=== PATIENT | female | born 1950 | race Caucasian/White ===

== ENCOUNTER 2018-11-17 09:42 | Outpatient (CLI) | payer MEDICARE, MEDICAID | END 2018-11-17 09:43 | disposition home or self-care (01) | LOC: C.LAB 09:42 | DX: R31.0 Gross hematuria (principal) ==

== ENCOUNTER 2018-11-18 10:04 | Outpatient (CLI) | payer MEDICARE, MEDICAID | END 2018-11-18 10:05 | disposition home or self-care (01) | LOC: C.EKG 10:04 ==

== ENCOUNTER 2019-01-11 17:34 | Inpatient (IN) | payer MEDICARE, MEDICAID | END 2019-01-15 12:51 | disposition home or self-care (01) | LOC: C.ER 17:34 → C.9E 22:05 → C.3T 22:25 ==